=== PATIENT | male | born 1990 | race Caucasian/White ===

== ENCOUNTER → 2019-06-09 14:42 | Outpatient (BNVA) | payer OTHER, SELFPAY | PROVIDERS: Family Provider Registered Nurse; PCP Registered Nurse; Visit Provider Nurse Practitioner Family | DX: R68.89 Other general symptoms and signs (principal); J02.9 Acute pharyngitis, unspecified | CPT/HCPCS: 87081; 87880 ==

== ENCOUNTER 2019-06-23 17:10 | Emergency (ER) | payer OTHER, SELFPAY ==
[2019-06-23 17:17] VITALS: BP 146/95; PULSE 96; RESP 16; TEMP 36.1; O2SAT 97; BMI 32.5
--- NOTE | 2019-06-23 17:28 | ED_ITS ---
HPI - Male Genitourinary General: Chief complaint: Urogenital-Male Stated complaint: poss incision tear Time Seen by Provider: 06/23/19 17:28 Source: patient Mode of arrival: ambulatory Limitations: no limitations History of Present Illness: HPI Narrative: Patient comes in for concerns of wound from a mastectomy from 1 week ago. Patient states that he noticed today that the suture had come out of the right incision line and the wound has opened. Patient denies any fever, nausea vomiting, or significant pain to the area. Review of Systems General: Reports: 10 or more systems reviewed and unremarkable except in HPI and below Skin/Breast: Reports: other (surgical wound concern) PFS ED PFSH: Social History Smoking and tobacco status: never smoked Alcohol intake: current Alcohol intake frequency: holidays/special occasions only Marital status: Number of children: 3 Current occupational status: employed History of recent travel: No Physical Exam Const: COMMON NORMALS: no apparent distress and oriented x3 GENERAL APPEARANCE: cooperative HENMT: COMMON NORMALS: normocephalic, TM's normal bilaterally and external nose normal HEAD & SCALP: normal to inspection and normocephalic NOSE: external nose normal TYMPANIC MEMBRANE: TM's normal bilaterally MOUTH: oral and palatal mucosa normal THROAT: posterior oropharynx normal Eye: GENERAL EYE: normal appearance of both eyes Neck/C-Spine: COMMON NORMALS: full ROM Lymph: LYMPHATIC: no lymphadenopathy noted Chest: COMMONS NORMALS: inspection of chest normal Resp: COMMON NORMALS: normal respiratory effort EFFORT & INSPECTION: Yes able to speak in complete sentences Cardio: COMMON NORMALS: regular rate and regular rhythm RATE: regular rate RHYTHM: regular rhythm GI: COMMON NORMALS: non-tender : COMMON NORMALS: Yes no CVA tenderness BLADDER/KIDNEY EXAM: Yes no CVA tenderness Back/Pelvis: COMMON NORMALS: no CVA tenderness and thoracic and lumbar spine normal to inspection Extremity: COMMON NORMALS: normal to inspection Neuro: COMMON NORMALS: oriented x3 and moves all extremities Psych: COMMON NORMALS: mental status grossly normal and cooperative Skin: NARRATIVE SKIN EXAM: 6 mm opened incision line to the right scrotal area. Light exudate is noted to the wound without any surrounding tissue redness or swelling. No tenderness is noted on palpation. No induration of tissue is noted. Course Vital Signs: Vital signs: Vital Signs Temperature 96.9 F L 06/23/19 17:17 Pulse Rate 96 06/23/19 17:17 Respiratory Rate 16 06/23/19 17:17 Blood Pressure 146/95 06/23/19 17:17 Pulse Oximetry 97 06/23/19 17:17 MDM - Male MDM Narrative: Medical decision making narrative: Patient comes in for evaluation of surgical wound after loss of suture to the right incision. Exam notes a superficial dehiscence of the wound with some mild exudate without any signs of infection. Differential diagnosis wound infection, wound dehiscence. Examination of the wound suggest dehiscence without infection at this time. Reviewed post visit care and need for follow-up. Patient reports understanding agreed to plan. Discharge Plan Discharge Patient Disposition: Home, Self-Care Clinical Impression: Dehiscence of wound of skin Qualifiers: Encounter type: initial encounter Qualified Code(s): T81.30XA - Disruption of wound, unspecified, initial encounter Condition: Stable Prescriptions: No Action bacitracin zinc [Antibiotic (bacitracin zinc)] 500 unit/gram ointment 1 applic topical ONCE Qty: 28.4 RF: 0 bupivacaine (PF) 0.5 % (5 mg/mL) solution 50 mg intradermal ONCE Qty: 10 RF: 0 lidocaine (PF) 10 mg/mL (1 %) solution 10 ml SUBCUT ONCE Qty: 1 RF: 0 Discharge Orders: Discharge Order (Routine); Ordered 06/23/19 Ordered By: Chaitanya Andersen Referrals: Geo Singh, MANAGER TRANSITION [Primary Care Provider] - Discharge Diet: Usual diet Discharge Activity: Increase activity as tolerated Patient Instructions: Wound Dehiscence (ED) Activity Restrictions/Additional Instructions: keep wound clean and dry as much as possible clean daily with mild soap and water apply Vaseline to area follow-up with primary care in one week Return for fever worsening redness and pain Stand Alone Forms: Work/School Release Coding 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
[2019-06-23 17:55] VITALS: BP 133/76; PULSE 85; RESP 16; O2SAT 98
== END 2019-06-23 17:56 | disposition home or self-care (01) ==
PROVIDERS: Emergency Provider Nurse Practitioner Family; Family Provider Registered Nurse; PCP Registered Nurse
DX: T81.30XA Disruption of wound, unspecified, initial encounter (principal); Y83.8 Other surgical procedures as the cause of abnormal reaction of the patient, or of later complication, without mention of misadventure at the time of the procedure
CPT/HCPCS: 12345; 99282

== ENCOUNTER 2019-09-26 18:35 | Emergency (ER) | payer OTHER, SELFPAY ==
[2019-09-26 18:39] VITALS: BP 134/84; PULSE 78; RESP 14; TEMP 36.8; O2SAT 98; BMI 32.4
--- NOTE | 2019-09-26 18:47 | ED_ITS ---
HPI - Abdominal Pain General: Chief Complaint: Abdominal Pain Stated Complaint: abd pain Time Seen by Provider: 09/26/19 18:44 Source: patient Mode of arrival: ambulatory Limitations: no limitations History of Present Illness: HPI narrative: Patient comes in with right upper quadrant pain that its worsened by movement. Patient appears well. Patient appears in no acute distress. Patient does appear in pain with movement or palpation to the abdominal wall. MD elicited complaint: abdominal pain Review of Systems General: Reports: 10 or more systems reviewed and unremarkable except in HPI and below GI: Reports: abdominal pain PFSH ED PFSH: Family History Mother Hypertension Father Diabetes Hypertension Social History Smoking and tobacco status: never smoked Alcohol intake: current Alcohol intake frequency: holidays/special occasions only Marital status: Number of children: 3 Current occupational status: employed History of recent travel: No Physical Exam Const: COMMON NORMALS: no acute distress and patient oriented x3 GENERAL APPEARANCE: cooperative HENMT: COMMON NORMALS: normocephalic, TM's normal bilaterally and Normal external nose present HEAD & SCALP: normal to inspection and normocephalic NOSE: Normal external nose present TYMPANIC MEMBRANE: TM's normal bilaterally MOUTH: Normal oral and palatal mucosa present THROAT: posterior oropharynx normal Eye: GENERAL EYE: appearance normal, both eyes and all related structures Neck/C-Spine: COMMON NORMALS: full ROM Lymph: LYMPHATIC: no lymphadenopathy noted Chest: COMMONS NORMALS: normal inspection of the chest OTHER: No tenderness with palpation of the chest wall. Resp: COMMON NORMALS: normal respiratory effort EFFORT & INSPECTION: Yes able to speak in complete sentences Cardio: COMMON NORMALS: regular rate and regular rhythm RATE: regular rate RHYTHM: regular rhythm GI: AUSCULTATION: Yes normoactive bowel sounds PALPATION: Yes Tenderness to palpation present (GI) (Right upper quadrant abdominal tenderness to palpation. Abdomen is soft. Bowel sounds are active to hyperactive.) : BLADDER/KIDNEY EXAM: Yes CVA tenderness (Mild right CVA tenderness to percussion.) on the right Back/Pelvis: COMMON NORMALS: thoracic and lumbar spine normal to inspection GENERAL BACK: Yes CVA tenderness (Mild right CVA tenderness to percussion.) Extremity: COMMON NORMALS: normal to inspection Neuro: COMMON NORMALS: patient oriented x3 and moves all extremities Psych: COMMON NORMALS: mental status grossly normal and cooperative Skin: COMMON NORMALS: no rashes or lesions noted GENERAL SKIN EXAM: no rashes or lesions noted Course Vital Signs: Vital signs: Vital Signs Temperature 98.2 F 09/26/19 18:39 Pulse Rate 78 09/26/19 18:39 Respiratory Rate 14 09/26/19 18:39 Blood Pressure 134/84 09/26/19 18:39 Pulse Oximetry 98 09/26/19 18:39 MDM - Abdominal Pain MDM Narrative: Medical decision making narrative: Patient comes in today with complaints of right upper quadrant pain. Patient states the pain started this morning when he got up out of bed. Patient reports the pain is exacerbated with movement. Eating does not improve or change pain intensity. Patient appears well. Exam notes right upper quadrant abdominal tenderness. Bowel sounds are normal throughout. Vital signs are normal. Differential diagnosis includes but not limited to cholecystitis, gastroenteritis, peptic ulcer disease, colitis, constipation, appendicitis, muscle strain. Laboratory values were normal. Urinalysis was clear except for some mild bilirubin. Liver enzymes were normal and lipase was normal. Reviewed exam with patient recommended monitoring and follow-up as needed for worsening symptoms. Encourage healthy diet and plenty of fluids. And the use of Tylenol or ibuprofen for pain. Patient reported understanding and agreed to plan. Lab Data: Labs: Lab Results 09/26/19 09/26/19 09/26/19 Range/Units 19:10 20:02 20:02 WBC 6.9 (4.0-10.0) 10^3/ uL RBC 5.25 (4.1-5.3) 10^6/u L Hgb 14.8 (11.7-16.6) g/dL Hct 45.3 (42.0-52.0) % MCV 86.3 (80-94) fL MCH 28.2 (28.0-34.0) pg MCHC 32.7 (30.0-36.0) g/dL RDW 11.9 L (12.1-15.1) % Plt Count 221 (130-400) 10^3/c mm MPV 10.0 (7.4-10.4) fL Neut % (Auto) 64.7 % Lymph % (Auto) 22.9 % [place] % (Auto) 9.3 % Eos % (Auto) 2.3 % Baso % (Auto) 0.4 % Neut # (Auto) 4.45 (1.8-7.7) 10^3/u L Lymph # (Auto) 1.6 (0.8-4.8) 10^3/u L [place] # (Auto) 0.6 (0.2-0.9) 10^3/u L Eos # (Auto) 0.2 (0.0-0.8) 10^3/u L Baso # (Auto) 0.0 (0.0-0.1) 10^3/u L Nucleated RBC % (a uto) 0 % Nucleated RBCs # 0.0 /100WBC Sodium 137 (136-145) mmol/L Potassium 4.0 (3.5-5.1) mmol/L Chloride 101 (98-107) mmol/L Carbon Dioxide 28 (22-29) mmol/L Anion Gap 12.0 (5-19) BUN 19 (6-20) mg/dL Creatinine 0.8 (0.7-1.2) mg/dL GFR Calculation 114.3 (90-130) mL/min Glucose 99 (65-115) mg/dL Calculated Osmolal ity 281 L (285-295) mOsm/k g Calcium 9.3 (8.5-10.5) mg/dL Total Bilirubin 0.5 (0.15-1.2) mg/dL AST 20 (0-40) U/L ALT 23 (0-41) U/L Alkaline Phosphata se 107 (40-130) IU/L Total Protein 7.4 (6.6-8.7) g/dL Albumin 4.8 (3.5-5.2) g/dL Globulin 2.6 (1.3-4.6) g/dL Lipase 19 (13-60) U/L Urine Color Yellow (Yellow) Urine Appearance Clear (CLEAR) Urine pH 5 (5-7) Ur Specific Gravit y 1.020 (1.005-1.030) Urine Protein Neg (Negative) Urine Glucose (UA) Norm (Normal) Urine Ketones Negative (Negative) Urine Blood Neg (Negative) Urine Nitrate Negative (Negative) Urine Bilirubin 1+ H (NEGATIVE) Urine Urobilinogen 1 H (Negative) mg/dL Ur Leukocyte Coni ase Negative (Negative) Discharge Plan Discharge Patient Disposition: Home, Self-Care Clinical Impression: Abdominal pain Qualifiers: Abdominal location: right upper quadrant Qualified Code(s): R10.11 - Right upper quadrant pain Condition: Stable Prescriptions: No Action No Known Home Medications RF: 0 Discharge Orders: Discharge Order (Routine); Ordered 09/26/19 Ordered By: Chaitanya Andersen Referrals: Geo Singh FNP [Primary Care Provider] - Discharge Diet: Usual diet Discharge Activity: Increase activity as tolerated Patient Instructions: Abdominal Pain (ED) Activity Restrictions/Additional Instructions: Drink plenty of water. Use acetaminophen or ibuprofen as needed for pain. Activity as tolerated. Return to the ER for high fever or worsening symptoms. Follow-up with primary care as needed. 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
[2019-09-26 19:49] LABS: Add Urine Microscopic? NO
[2019-09-26 19:56] LABS: Bilirubin Urine 1+ (NEGATIVE); Blood Urine Neg (Negative); Glucose Urine UA Norm (Normal); Ketones Urine Negative (Negative); Leukocyte Esterase Urine Negative (Negative); Nitrate Urine Negative (Negative); Protein Urine Neg (Negative); Urine Appearance Clear (CLEAR); Urine Color Yellow (Yellow); Urobilinogen Urine 1 mg/dL (Negative); pH Urine 5 (5-7)
[2019-09-26 20:08] LABS: Basophils % 0.4 %; Eosinophils # 0.2 10^3/uL (0.0-0.8); Eosinophils % 2.3 %; Hematocrit 45.3 % (42.0-52.0); Hemoglobin 14.8 g/dL (11.7-16.6); Lymphocytes # 1.6 10^3/uL (0.8-4.8); Lymphocytes % 22.9 %; Mean Corpuscular HGB Conc 32.7 g/dL (30.0-36.0); Mean Corpuscular Hemoglobin 28.2 pg (28.0-34.0); Mean Corpuscular Volume 86.3 fL (80-94); Monocytes # 0.6 10^3/uL (0.2-0.9); Monocytes % 9.3 %; Neutrophils # 4.45 10^3/uL (1.8-7.7); Neutrophils % 64.7 %; Nucleated Red Blood Cells % 0 %; Platelet Count 221 10^3/cmm (130-400); Red Blood Count 5.25 10^6/uL (4.1-5.3); Red Cell Distribution Width 11.9 % (12.1-15.1); White Blood Count 6.9 10^3/uL (4.0-10.0)
[2019-09-26 20:23] LABS: Alanine Aminotransferase 23 U/L (0-41); Albumin Level 4.8 g/dL (3.5-5.2); Alkaline Phosphatase 107 IU/L (40-130); Aspartate Amino Transferase 20 U/L (0-40); Blood Urea Nitrogen 19 mg/dL (6-20); Calcium 9.3 mg/dL (8.5-10.5); Carbon Dioxide 28 mmol/L (22-29); Chloride 101 mmol/L (98-107); Globulin 2.6 g/dL (1.3-4.6); Glomerular Filtration Rate 114.3 mL/min (90-130); Glucose 99 mg/dL (65-115); Lipase 19 U/L (13-60); Osmolality Calculated 281 mOsm/kg (285-295); Sodium 137 mmol/L (136-145); Total Bilirubin 0.5 mg/dL (0.15-1.2); Total Protein 7.4 g/dL (6.6-8.7)
[2019-09-26 20:49] VITALS: BP 127/75; PULSE 84; RESP 18; O2SAT 97
--- NOTE | 2019-09-26 20:57 | PC.NURSE ---
i agree with this assessment
== END 2019-09-26 20:30 | disposition home or self-care (01) ==
PROVIDERS: Emergency Provider Nurse Practitioner Family; PCP Registered Nurse
DX: R10.11 Right upper quadrant pain (principal)
CPT/HCPCS: 12345; 80053; 81003; 83690; 85025; 99282

== ENCOUNTER 2020-09-01 11:00 | Outpatient (CLI) | payer OTHER, SELFPAY | END 2020-09-01 11:01 | disposition home or self-care (01) | LOC: SLEEP 09-02 13:50 | PROVIDERS: PCP Nurse Practitioner Family; Visit Provider Nurse Practitioner Family | DX: G47.30 Sleep apnea, unspecified (principal) | CPT/HCPCS: 80053; 80061; 94762 ==

== ENCOUNTER → 2020-11-10 11:55 | Outpatient (BNVA) | payer OTHER, SELFPAY | PROVIDERS: PCP Nurse Practitioner Family; Visit Provider Nurse Practitioner Family | DX: Z20.822 Contact with and (suspected) exposure to COVID-19 (principal) | CPT/HCPCS: 87635 ==

== ENCOUNTER → 2021-04-18 14:15 | Outpatient (BNVA) | payer OTHER, SELFPAY | PROVIDERS: PCP Nurse Practitioner Family; Visit Provider Nurse Practitioner Family | DX: K21.9 Gastro-esophageal reflux disease without esophagitis (principal); R04.0 Epistaxis; I10 Essential (primary) hypertension | CPT/HCPCS: 80053; 85025 ==

== ENCOUNTER 2021-06-02 20:00 | Outpatient (CLI) | payer OTHER, SELFPAY | END 2021-06-02 20:01 | disposition home or self-care (01) | LOC: SLEEP 06-03 03:20 | PROVIDERS: PCP Nurse Practitioner Family; Visit Provider Nurse Practitioner Family | DX: G47.30 Sleep apnea, unspecified (principal) | CPT/HCPCS: 95810 ==

== ENCOUNTER 2021-08-01 20:00 | Outpatient (CLI) | payer OTHER, SELFPAY | END 2021-08-01 20:01 | disposition home or self-care (01) | LOC: SLEEP 08-02 06:37 | PROVIDERS: PCP Nurse Practitioner Family; Visit Provider Nurse Practitioner Family | DX: G47.33 Obstructive sleep apnea (adult) (pediatric) (principal) | CPT/HCPCS: 95811 ==

== ENCOUNTER 2021-10-23 13:10 | Emergency (ER) | payer OTHER, SELFPAY ==
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
[2021-10-23 13:19] VITALS: BP 146/92; PULSE 109; RESP 18; TEMP 37.1; O2SAT 98; BMI 34.4
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
[2021-10-23 14:47] VITALS: BP 122/84; PULSE 94; RESP 15; O2SAT 98
== END 2021-10-23 14:50 | disposition home or self-care (01) ==
PROVIDERS: Emergency Provider Physician Assistant; PCP Nurse Practitioner Family
DX: S60.221A Contusion of right hand, initial encounter (principal); V89.2XXA Person injured in unspecified motor-vehicle accident, traffic, initial encounter
CPT/HCPCS: 73110; 73130; 99283

== ENCOUNTER → 2021-10-25 16:05 | Outpatient (BNVA) | payer OTHER, SELFPAY | PROVIDERS: PCP Nurse Practitioner Family; Visit Provider Registered Nurse Neonatal Intensive Care | DX: M79.641 Pain in right hand (principal) | CPT/HCPCS: 73130 ==

== ENCOUNTER 2022-10-10 07:40 | Emergency (ER) | payer OTHER, SELFPAY ==
[2022-10-10 07:58] VITALS: BP 129/85; PULSE 80; RESP 18; TEMP 36.6; O2SAT 96; BMI 35.9
--- NOTE | 2022-10-10 08:10 | ECG_ITS ---
[facility] Test Date: 2022-10-10 Pat Name: Christopher Lucero Department: Room: Gender: Male Technology Architect: : 1990 Requested By: August Hancock Order Number: [id number] Silas MD: Lanre Lawson M.D. Measurements Intervals [place] Rate: 80 P: 33 WA: 144 QRS: 39 QRSD: 113 T: 9 QT: 387 QTc: 448 Interpretive Statements SINUS RHYTHM POSSIBLE INFERIOR MYOCARDIAL INFARCTION , PROBABLY OLD [30 ms Q WAVE IN II/aVF] Compared to ECG 01/31/2016 12:02:09 Myocardial infarct finding now present Electronically Signed On 10-10-2022 17:33:17 CDT by Lanre Lawson M.D. [id number]
--- NOTE | 2022-10-10 08:10 | XRR_ITS ---
PROCEDURE INFORMATION: Exam: XR Chest Exam date and time: 10/10/2022 8:15 AM Age: 32 years old Clinical indication: Pain; Angina and shortness of breath; Angina pectoris; Additional info: Cp/sob TECHNIQUE: Imaging protocol: Radiologic exam of the chest. Views: 1 view. COMPARISON: CR XR chest 2V* [id number] 01/31/2016 11:54 AM FINDINGS: Lungs: Unremarkable. No consolidation. Pleural spaces: Unremarkable. No pleural effusion. No pneumothorax. Heart/Mediastinum: Unremarkable. No cardiomegaly. Bones/joints: Unremarkable. XR/XR chest 1V portable [id number] IMPRESSION: No acute findings.
--- NOTE | 2022-10-10 08:35 | XRR_ITS ---
PROCEDURE INFORMATION: Exam: XR Right Shoulder Exam date and time: 10/10/2022 9:01 AM Age: 32 years old Clinical indication: Pain; Shoulder; Right; Additional info: Right shoulder pain, throwing softball yesterday TECHNIQUE: Imaging protocol: Radiologic exam of the right shoulder. Views: 2 or more views. COMPARISON: CR XR chest 1V portable [id number] 10/10/2022 8:15 AM FINDINGS: Bones/joints: Normal. Soft tissues: Normal. XR/XR shoulder RT min 2V* [id number] IMPRESSION: No acute findings.
--- NOTE | 2022-10-10 08:36 | W.ED.CHESTPA ---
HPI - Chest Pain General: Chief Complaint: Shortness of Breath/Dyspnea Stated Complaint: RT arm inj/pain on breathing Time Seen by Provider: 10/10/22 08:01 History of Present Illness: Patient is a 32-year-old male that comes to the ED with chest pain, shortness of breath and right shoulder pain. Patient has a history of hypertension, major depressive disorder and anxiety. Patient currently takes metoprolol, losartan, Wellbutrin and fluoxetine and takes his medications daily. Last night patient was playing in his first slow pitch softball game season. He was playing outfield and he was walking into the [facility] when he started to get shortness of breath, chest pain and he described having cold sweats. He also endorsed feeling lightheaded. Chest pain was located in the left side of chest. He went and sat down on the bench but it did not help his symptoms so he went and laid down on on the grass. He did not play anymore of the game and sat and rested. Patient states he felt like he was going to pass out but never did. Most of his symptoms resolved after a softball game right before he got home. He states that he is still having some shortness of breath though all throughout last night and woke up today with feeling short of breath. Denies any active chest pain. Patient does state that he does feel some chest pain if he takes a deep breath. After the softball game last night he was having some right shoulder pain. Patient does throw with his right arm. He was having difficulty abducting right arm and having pain in right shoulder. This morning he woke up and he went to put on his shirt and he felt his right shoulder pop and is now having worsening pain in right shoulder. He is having trouble doing any abduction of his right arm. Rates his pain currently a 5 out of 10 in his right arm. Patient does endorse having panic attacks in the past. Associated symptoms: Reports dyspnea; Deny abdominal pain, fever(s), nausea, palpitations or vomiting Review of Systems Const: Denies: fever(s), chills or fatigue Eyes: Denies: change in vision or eye discomfort ENMT: Denies: throat pain, odynophagia, nasal discharge or nasal congestion Card: Reports: chest pain; Denies: palpitations, edema, swelling of feet/ankles, dyspnea on exertion or orthopnea Resp: Reports: dyspnea; Denies: productive cough or non-productive cough GI: Denies: abdominal pain, nausea, vomiting, diarrhea, constipation or hematochezia : Denies: flank pain, difficulty urinating, dysuria or hematuria Musc: Reports: extremity pain (Right shoulder); Denies: neck pain, back pain or extremity swelling Skin/Breast: Denies: rash or new lesions Neuro: Denies: headache(s), numbness in extremities or weakness in extremities PFSH ED PFSH: Medical History History of MRSA infection Surgical History History of appendectomy History of tonsillectomy and adenoidectomy Family History Mother Hypertension Cancer skin Father Diabetes Hypertension Other Chronic kidney disease (CKD) Hyperlipidemia Lung disease Psychiatric illness Denies family history of CAD (coronary artery disease) Clotting disorder Dementia Anesthesia complication Bleeding disorder Stroke Social History Smoking and tobacco status: former smoker Alcohol intake: former Year of sobriety/quit date alcohol: 21 Former alcohol use details: quit 2020 Substance/Drug Use: never Lives independently: Yes Marital status: Number of children: 3 Current occupational status: employed 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 Current gender identity: Male Special maciej needs: No Physical Exam Const: COMMON NORMALS: no acute distress, patient oriented x3, healthy appearing and alert HENMT: COMMON NORMALS: normocephalic HEAD & SCALP: normocephalic MOUTH: Normal oral and palatal mucosa present THROAT: posterior oropharynx normal and uvula midline Neck/C-Spine: COMMON NORMALS: supple GENERAL: Yes normal visual inspection Resp: COMMON NORMALS: normal respiratory effort, No retractions, No use of accessory muscles and clear to auscultation bilaterally AUSCULTATION: clear to auscultation bilaterally Cardio: COMMON NORMALS: regular rate, regular rhythm, S1 normal heart sound present, S2 normal heart sound present, No gallops present (Cardio), No clicks present (Cardio), No murmurs present (Cardio) and Peripheral pulses 2+ throughout RATE: regular rate RHYTHM: regular rhythm HEART SOUNDS: S1 normal heart sound present and S2 normal heart sound present PERIPHERAL PULSES: Peripheral pulses 2+ throughout GI: COMMON NORMALS: Normal to inspection, nondistended, normoactive bowel sounds present, Soft to palpation, non-tender and no masses PALPATION: Yes Soft to palpation : COMMON NORMALS: Yes no CVA tenderness BLADDER/KIDNEY EXAM: Yes no CVA tenderness Back/Pelvis: COMMON NORMALS: no CVA tenderness Extremity: NARRATIVE EXTREMITY EXAM: Right shoulder?tenderness over AC joint. Limited range of motion (abduction of arm). Neurovascular intact distally. GENERAL: Yes normal exam except as noted Neuro: COMMON NORMALS: patient oriented x3 SENSORIUM/ORIENTATION: Yes alert GAIT: Yes Normal gait present Skin: GENERAL SKIN EXAM: dry skin Course Vital Signs: Vital signs: Vital Signs Temperature 97.8 F 10/10/22 07:58 Pulse Rate 80 10/10/22 07:58 Respiratory Rate 15 10/10/22 08:57 Blood Pressure 129/85 10/10/22 07:58 Pulse Oximetry 95 10/10/22 08:57 Oxygen Delivery Me thod Room Air 10/10/22 07:58 MDM - Chest Pain Medical Decision Making Patient is a 32-year-old male that comes to the ED with chest pain, shortness of breath and right shoulder pain. Patient has a history of hypertension, major depressive disorder and anxiety. Patient currently takes metoprolol, losartan, Wellbutrin and fluoxetine and takes his medications daily. Last night patient was playing in his first slow pitch softball game season. He was playing outfield and he was walking into the [facility] when he started to get shortness of breath, chest pain and he described having cold sweats. He also endorsed feeling lightheaded. Chest pain was located in the left side of chest. He went and sat down on the bench but it did not help his symptoms so he went and laid down on on the grass. He did not play anymore of the game and sat and rested. Patient states he felt like he was going to pass out but never did. Most of his symptoms resolved after a softball game right before he got home. He states that he is still having some shortness of breath though all throughout last night and woke up today with feeling short of breath. Denies any active chest pain. Patient does state that he does feel some chest pain if he takes a deep breath. After the softball game last night he was having some right shoulder pain. Patient does throw with his right arm. He was having difficulty abducting right arm and having pain in right shoulder. This morning he woke up and he went to put on his shirt and he felt his right shoulder pop and is now having worsening pain in right shoulder. He is having trouble doing any abduction of his right arm. Rates his pain currently a 5 out of 10 in his right arm. Patient endorses having a history of panic attacks. Vitals are stable. Right shoulder?tenderness over AC joint. Limited range of motion (abduction of arm). Neurovascular intact distally. The rest of Exam is benign and patient appears healthy and in no acute distress or pain. CBC and CMP are unremarkable. Troponins are negative. EKG shows normal sinus rhythm with no ST segment elevation or depression seen. Chest x-ray showed no acute findings. Shoulder x-ray showed no acute findings. Patient was given a liter of IV fluids, nausea and pain meds here in the ED. He was stable for discharge home and diagnosed with atypical chest pain and right shoulder pain likely due to rotator cuff injury. I placed order with case management for patient to be referred to ortho for follow-up. Patient was put in a shoulder sling. Patient told to follow-up with his PCP within the next week for reevaluation. Return to ED precautions given. Patient understood and agreed with plan. Lab Data I reviewed the patient's lab results. 10/10/22 08:48 10/10/22 08:48 Radiology Impressions Chest X-Ray 10/10/22 08:10 IMPRESSION: No acute findings. Shoulder X-Ray 10/10/22 08:35 IMPRESSION: No acute findings. Laboratory Results WBC 8.6 10^3/uL (4.0-10.0) 10/10/22 08:48 RBC 5.02 10^6/uL (4.1-5.3) 10/10/22 08:48 Hgb 14.8 g/dL (11.7-16.6) 10/10/22 08:48 Hct 42.5 % (42.0-52.0) 10/10/22 08:48 MCV 84.7 fl (80-94) 10/10/22 08:48 MCH 29.5 pg (28.0-34.0) 10/10/22 08:48 MCHC 34.8 g/dL (30.0-36.0) 10/10/22 08:48 RDW 11.9 % (12.1-15.1) L 10/10/22 08:48 Plt Count 215 10^3/cmm (130-400) 10/10/22 08:48 MPV 9.8 fL (7.4-10.4) 10/10/22 08:48 Neut % (Auto) 78.7 % 10/10/22 08:48 Lymph % (Auto) 11.8 % 10/10/22 08:48 Lucas % (Auto) 8.7 % 10/10/22 08:48 Eos % (Auto) 0.2 % 10/10/22 08:48 Baso % (Auto) 0.3 % 10/10/22 08:48 Neut # (Auto) 6.79 10^3/uL (1.8-7.7) 10/10/22 08:48 Lymph # (Auto) 1.0 10^3/uL (0.8-4.8) 10/10/22 08:48 Lucas # (Auto) 0.8 10^3/uL (0.2-0.9) 10/10/22 08:48 Eos # (Auto) 0.0 10^3/uL (0.0-0.8) 10/10/22 08:48 Baso # (Auto) 0.0 10^3/uL (0.0-0.1) 10/10/22 08:48 Nucleated RBC % (auto) 0 % 10/10/22 08:48 Nucleated RBCs # 0.0 /100WBC 10/10/22 08:48 Sodium 138 mmol/L (136-145) 10/10/22 08:48 Potassium 3.8 mmol/L (3.5-5.1) 10/10/22 08:48 Chloride 101 mmol/L (98-107) 10/10/22 08:48 Carbon Dioxide 25 mmol/L (22-29) 10/10/22 08:48 Anion Gap 15.8 (5-19) 10/10/22 08:48 BUN 17 mg/dL (6-20) 10/10/22 08:48 Creatinine 1.0 mg/dL (0.7-1.2) 10/10/22 08:48 GFR Calculation 86.6 mL/min (90-130) L 10/10/22 08:48 Glucose 110 mg/dL (65-115) 10/10/22 08:48 Calculated Osmolality 288 mOsm/kg (285-295) 10/10/22 08:48 Calcium 8.9 mg/dL (8.5-10.5) 10/10/22 08:48 Total Bilirubin 0.9 mg/dL (0.15-1.2) 10/10/22 08:48 AST 21 U/L (0-40) 10/10/22 08:48 ALT 24 U/L (0-41) 10/10/22 08:48 Alkaline Phosphatase 123 U/L (40-130) 10/10/22 08:48 Troponin T Baseline 6 ng/L (0-15) 10/10/22 08:48 Troponin T 120 Minute 6.00 ng/L (0-15) 10/10/22 11:25 Delta Troponin T 0 ABS# (0-10) 10/10/22 11:25 Total Protein 6.9 g/dL (6.6-8.7) 10/10/22 08:48 Albumin 4.7 g/dL (3.5-5.2) 10/10/22 08:48 Globulin 2.2 g/dL (1.3-4.6) 10/10/22 08:48 EKG Data EKG 1: EKG interpretation date: 10/10/22 Interpretation: Normal sinus rhythm, no ST segment elevation or depression seen., 69 bpm Discharge Plan Discharge Patient Disposition: Home Clinical Impression: Atypical chest pain Rotator cuff injury Qualifiers: Encounter type: initial encounter Laterality: right Qualified Code(s): S46.001A - Unspecified injury of muscle(s) and tendon(s) of the rotator cuff of right shoulder, initial encounter Condition: Stable Prescriptions: New ibuprofen 800 mg tablet 800 mg PO Q8H PRN (Reason: pain) Qty: 20 0RF No Action bupropion HCl [Wellbutrin XL] 300 mg tablet extended release 24 hr 300 mg PO DAILY Qty: 90 1RF losartan 50 mg tablet 50 mg PO DAILY Qty: 90 1RF fluoxetine [Prozac] 20 mg capsule 20 mg PO DAILY Qty: 90 1RF metoprolol succinate 25 mg tablet extended release 24 hr 25 mg PO DAILY Qty: 90 1RF omeprazole 40 mg capsule,delayed release(DR/EC) 40 mg PO DAILY PRN (Reason: GERD) Qty: 90 1RF Discharge Orders: Discharge ED (Routine); Ordered 10/10/22 Ordered By: August Hancock Referrals: Joaquín Rodriguez MD [Primary Care Provider] - Discharge Diet: Regular Discharge Activity: Limit activity as instructed Patient Instructions: Shoulder Sprain (ED), Noncardiac Chest Pain (ED) Activity Restrictions/Additional Instructions: Follow-up with medical provider as directed in the next 5 to 7 days for reevaluation. Case management will be contacting you in the next several days to set up an appointment with Ortho for follow-up. Wear shoulder sling throughout the day to help with symptoms and pain. Take arm out of sling multiple times throughout the day and try to do a little range of motion exercises to prevent frozen shoulder. Continue taking all home medications as previously prescribed. Return to the ER or your medical provider if condition worsens. Please read and understand discharge instructions. Thank you for choosing [facility] for your healthcare needs today. Please realize this is an emergency room and that we are providing you with a medical screening exam and this may not be complete and all inclusive of all the testing and or work up that you may need to determine your ailment or severity of your illness. It is very important that you follow up as instructed or that you return to the Emergency Department should you have concerns or if your condition changes or worsens in any way. Stand Alone Forms: Work/School Release Coding Level of Care Code ED Radiopharmacist for Vahid Hagan
[2022-10-10 08:57] VITALS: RESP 15; O2SAT 95
[2022-10-10] MEDS: morphine 4 mg/mL SDV 1 mL IVP (08:57)
[2022-10-10] MEDS: sodium chloride 0.9% 1,000 ML 999 ML IV (08:57)
[2022-10-10 08:58] LABS: Basophils % 0.3 %; Eosinophils % 0.2 %; Hematocrit 42.5 % (42.0-52.0); Hemoglobin 14.8 g/dL (11.7-16.6); Lymphocytes % 11.8 %; Mean Corpuscular HGB Conc 34.8 g/dL (30.0-36.0); Mean Corpuscular Hemoglobin 29.5 pg (28.0-34.0); Mean Corpuscular Volume 84.7 fl (80-94); Mean Platelet Volume 9.8 fL (7.4-10.4); Monocytes # 0.8 10^3/uL (0.2-0.9); Monocytes % 8.7 %; Neutrophils # 6.79 10^3/uL (1.8-7.7); Neutrophils % 78.7 %; Nucleated Red Blood Cells % 0 %; Platelet Count 215 10^3/cmm (130-400); Red Blood Count 5.02 10^6/uL (4.1-5.3); Red Cell Distribution Width 11.9 % (12.1-15.1); White Blood Count 8.6 10^3/uL (4.0-10.0)
[2022-10-10] MEDS: ondansetron 2 mg/ML SDV 2 mL 4 MG IVP (08:58)
[2022-10-10 09:17] LABS: Alanine Aminotransferase 24 U/L (0-41); Albumin Level 4.7 g/dL (3.5-5.2); Alkaline Phosphatase 123 U/L (40-130); Anion Gap 15.8 (5-19); Aspartate Amino Transferase 21 U/L (0-40); Blood Urea Nitrogen 17 mg/dL (6-20); Calcium 8.9 mg/dL (8.5-10.5); Carbon Dioxide 25 mmol/L (22-29); Chloride 101 mmol/L (98-107); Globulin 2.2 g/dL (1.3-4.6); Glomerular Filtration Rate 86.6 mL/min (90-130); Glucose 110 mg/dL (65-115); Osmolality Calculated 288 mOsm/kg (285-295); Potassium 3.8 mmol/L (3.5-5.1); Sodium 138 mmol/L (136-145); Total Bilirubin 0.9 mg/dL (0.15-1.2); Total Protein 6.9 g/dL (6.6-8.7)
[2022-10-10 09:26] LABS: Troponin(5th) Baseline 6 ng/L (0-15)
--- NOTE | 2022-10-10 10:10 | ECG_ITS ---
[facility] Test Date: 2022-10-10 Pat Name: Christopher Lucero Department: Room: Gender: Male Creative Strategist: : 1990 Requested By: August Hancock Order Number: [id number] Silas MD: Lanre Lawson M.D. Measurements Intervals [place] Rate: 69 P: 40 TX: 170 QRS: 40 QRSD: 117 T: 11 QT: 413 QTc: 443 Interpretive Statements SINUS RHYTHM WITH SINUS ARRHYTHMIA MODERATE INTRAVENTRICULAR CONDUCTION DELAY [110+ ms QRS DURATION] Compared to ECG 10/10/2022 08:21:17 Intraventricular conduction delay now present Myocardial infarct finding no longer present Electronically Signed On 10-10-2022 17:39:40 CDT by Lanre Lawson M.D. [id number]
--- NOTE | 2022-10-10 11:32 | DCPLANNER ---
Addendum entered by Clara Malhotra 10/20/22 10:30: Patient has a follow up appointment scheduled with ortho - patient did attend appointment. Addendum entered by Clara Malhotra 10/11/22 15:21: Patient has a follow up appointment scheduled for Thursday, October 13, 2022 at 8:30 with Soren Farley at ortho. Original Note: manager collection had message to schedule a follow up appointment for patient with ortho. manager collection sent patients information to the front office staff at ortho. Patients information will be printed and reviewed. Clinic will call patient with appointment information.
[2022-10-10 12:19] LABS: Troponin 5 2HR Delta 0 ABS# (0-10)
[2022-10-10] MEDS: ketorolac 30 mg/mL INJ IVP (12:37)
== END 2022-10-10 12:55 | disposition home or self-care (01) ==
PROVIDERS: Emergency Provider Physician Assistant; PCP Family Medicine
DX: R07.89 Other chest pain (principal); S46.001A Unspecified injury of muscle(s) and tendon(s) of the rotator cuff of right shoulder, initial encounter; Z87.891 Personal history of nicotine dependence; I10 Essential (primary) hypertension; X50.9XXA Other and unspecified overexertion or strenuous movements or postures, initial encounter; Y93.64 Activity, baseball
CPT/HCPCS: 71045; 73030; 80053; 84484; 85025; 93005; 96374; 96375; 99285; J1885; J2270; J2405; J7030

== ENCOUNTER 2022-10-26 12:13 | Outpatient (CLI) | payer OTHER, SELFPAY ==
--- NOTE | 2022-10-26 12:26 | MR_ITS ---
WS: [id number] MRI RIGHT SHOULDER ARTHROGRAM HISTORY: Pain after playing softball. COMPARISON: Shoulder radiograph 10/10/2022 TECHNIQUE: Pre and postcontrast imaging. Gadolinium mixture was injected under fluoroscopy. Coronal T 1 fat sat, sagittal T2 fat sat, coronal T2 fat sat, axial proton density, axial T1 nonfat saturation. Pre arthrogram: There is a large amount of marrow edema in the humeral head with a nondisplaced humer al head fracture. There is adjacent edema in the soft tissues. Biceps tendon is in normal position. N o signal abnormality in the biceps tendon. No significant AC joint arthritis. Mild subacromial imping ement. No rotator cuff muscle atrophy or edema. The distal supraspinatus tendon is markedly thickened with a focal area of interruption. Discontinuity of the tendon with increased T2 signal at the humeral head attachment site. This is also at the same location as the fracture. Full-thickness insertion site te ar is suspected. No additional rotator cuff abnormality. Normal labrum. Post arthrogram: There is a very thin full-thickness defect in the distal supraspinatus tendon which fills with injected contrast. There is a additional full-thickness tear involving the insertion site which also fills with contrast. These tears may actually be contiguous. None of the injected contrast extends into the subacromial-subdeltoid bursa. The biceps tendon remains normal position. IMPRESSION: 1. Large amount of marrow edema with nondisplaced fracture involving the humeral head. 2. There is a complex tear with severe adjacent tendinopathy involving the distal supraspinatus tendo n. There are 2 tracts that fill with contrast consistent with tears. I suspect this is probably 1 com plex tear. No retraction of the tendon. 3. No biceps tendon tear or displacement. Distal supraspinatus tendon tear is very closely associated with the biceps tendon insertion but cannot confirm involvement on this exam.
--- NOTE | 2022-10-26 13:00 | IR_ITS ---
WS: [id number] RIGHT SHOULDER ARTHROGRAM UNDER FLUOROSCOPY. PRIOR TO MRI EVALUATION. HISTORY: pain COMPARISON: Radiographs 10/10/2022 FLUOROSCOPY TIME: 0min [id number] # of spot films: 3 Procedure, risks and complications were explained to the patient. Consent has been obtained. Under fluoroscopic guidance the skin is marked over the medial superior third of the humeral head, cl eansed with ChloraPrep and anesthetized with lidocaine. 22-gauge spinal needle is inserted to the cor shereen of the humeral head. Test injection with Omnipaque reveals the needle is appropriately positioned in the joint. A mixture of 10 cc sterile saline, 5 cc Omnipaque and 0.1 mmol gadolinium are injected under fluoroscopic guidance. Patient tolerated the joint distention well. No complications. IMPRESSION: Uncomplicated right shoulder joint injection prior to MRI.
== END 2022-10-26 12:14 | disposition home or self-care (01) ==
PROVIDERS: PCP Family Medicine; Visit Provider Nurse Practitioner Family
DX: M12.811 Other specific arthropathies, not elsewhere classified, right shoulder (principal); M75.101 Unspecified rotator cuff tear or rupture of right shoulder, not specified as traumatic; S46.009A Unspecified injury of muscle(s) and tendon(s) of the rotator cuff of unspecified shoulder, initial encounter; X58.XXXA Exposure to other specified factors, initial encounter
CPT/HCPCS: 23350; 73223; 77002; A9577; Q9966

== ENCOUNTER → 2022-11-28 13:06 | Outpatient (BNVA) | payer OTHER, SELFPAY | PROVIDERS: PCP Family Medicine; Visit Provider Nurse Practitioner Family | DX: S42.291A Other displaced fracture of upper end of right humerus, initial encounter for closed fracture; S46.811A Strain of other muscles, fascia and tendons at shoulder and upper arm level, right arm, initial encounter; Z01.818 Encounter for other preprocedural examination; X58.XXXA Exposure to other specified factors, initial encounter; Y93.64 Activity, baseball | CPT/HCPCS: 73030 ==

== ENCOUNTER 2022-12-11 14:01 | Outpatient (CLI) | payer OTHER, SELFPAY ==
[2022-12-11 14:34] LABS: Add Urine Microscopic? NO; Charge for UA Resulting for Rev
[2022-12-11 14:37] LABS: Urine Color Yellow (Yellow)
[2022-12-11 14:38] LABS: Basophils % 0.3 %; Bilirubin Urine Neg (Negative); Blood Urine Neg (Negative); Eosinophils # 0.1 10^3/uL (0.0-0.8); Eosinophils % 1.5 %; Glucose Urine UA Norm (Normal); Hematocrit 43.5 % (37-53); Ketones Urine Negative (Negative); Leukocyte Esterase Urine Negative (Negative); Lymphocytes # 1.5 10^3/uL (0.8-4.8); Lymphocytes % 22.4 %; Mean Corpuscular HGB Conc 33.8 g/dL (30-55); Mean Corpuscular Volume 85.8 fl (82-101); Mean Platelet Volume 9.5 fL (7.4-10.4); Monocytes # 0.5 10^3/uL (0.2-0.9); Neutrophils # 4.37 10^3/uL (1.8-7.7); Neutrophils % 67.2 %; Nitrate Urine Negative (Negative); Nucleated Red Blood Cells % 0 %; Platelet Count 225 10^3/cmm (157-399); Protein Urine Neg (Negative); Red Blood Count 5.07 10^6/uL (3.85-5.65); Sulfosalicylic Acid Urine Negative (Negative); Urine Appearance Clear (CLEAR); Urobilinogen Urine Norm (Negative); White Blood Count 6.51 10^3/uL (3.29-11.43); pH Urine 8 (5-7)
[2022-12-11 14:59] LABS: Alanine Aminotransferase 22 U/L (0-41); Albumin Level 4.5 g/dL (3.5-5.2); Alkaline Phosphatase 116 U/L (40-130); Aspartate Amino Transferase 17 U/L (0-40); Blood Urea Nitrogen 13 mg/dL (6-20); Carbon Dioxide 29 mmol/L (22-29); Chloride 103 mmol/L (98-107); Globulin 2.7 g/dL (1.3-4.6); Glomerular Filtration Rate 97.8 mL/min (90-130); Glucose 92 mg/dL (65-115); Osmolality Calculated 290 mOsm/kg (285-295); Sodium 140 mmol/L (136-145); Total Bilirubin 0.6 mg/dL (0.15-1.2); Total Protein 7.2 g/dL (6.6-8.7)
[2022-12-11 15:24] LABS: Anion Gap 11.9 (5-19); Potassium 3.9 mmol/L (3.5-5.1)
== END 2022-12-11 14:02 | disposition home or self-care (01) ==
PROVIDERS: PCP Family Medicine; Visit Provider Nurse Practitioner Family
DX: Z01.818 Encounter for other preprocedural examination (principal)
CPT/HCPCS: 36415; 80053; 81003; 85025

== ENCOUNTER 2022-12-27 05:50 | Day surgery (SDC) | payer OTHER, SELFPAY ==
[2022-12-26 13:04] VITALS: BMI 35.9
[2022-12-27] VITALS (8 sets, daily range): BP systolic 129–146; BP diastolic 68–102; PULSE 66–80; RESP 14–19; TEMP 36.1–36.4; O2SAT 96–100
[2022-12-27] MEDS: scopolamine 1.5 Patch 1 PATCH TRANSDERMA (06:47)
[2022-12-27] MEDS: sodium chloride 0.9% 1,000 ML 30 ML IV (06:53)
[2022-12-27] MEDS: ketorolac 30 mg/mL INJ IVP (06:54)
[2022-12-27] MEDS: acetaminophen 1,000 MG/100 ML PIGGYBACK 400 MG IV (06:55)
--- NOTE | 2022-12-27 06:58 | W.PM.OPSUD ---
Surgery/Procedure H&P Update DATE OF PROCEDURE: December 27, 2022 DATE H&P PERFORMED: 11/28/22 H&P UPDATE INFORMATION: I have reviewed H&P completed within last 30 days, I have examined patient prior to procedure and No changes to prior documentation CHANGES TO PREVIOUS DOCUMENTATION: Reviewed the ins and outs of the procedure risk benefits complication alternatives with surgery understanding risk of surgery patient elects to proceed with surgical intervention all questions been answered at this time. PREOP DIAGNOSIS: Right shoulder rotator cuff tear PRIMARY INDICATION FOR PROCEDURE: Right shoulder rotator cuff tear PLANNED PROCEDURE: Operation Date: 12/27/22 07:00 Proposed Procedures p Right shoulder diagnostic and surgical arthroscopy with rotator cuff repair and possible subacromial decompression 21364,S46.811A(Right) - Kemal Hancock DO s Rotator Cuff Repair - Arthroscopy(Right) - DO leeann Duenas possible subacromial decompression(Right) - Kemal Hancock DO
[2022-12-27] MEDS: ceFAZolin 2,000 MG in sodium chloride 0.9% (plus) 50 ML 100 MG IV (07:17)
--- NOTE | 2022-12-27 07:17 | ANES.PREANE2 ---
Pre-Anesthetic Assessment Height/Weight: Height 1.78 m Weight 113.398 kg Temp Pulse Resp BP Pulse Ox O2 Del Method 97.6 F 80 18 129/84 97 Room Air 12/27/22 06:01 12/27/22 06:01 12/27/22 06:01 12/27/22 06:01 12/27/22 06:01 12/27/22 06:01 Preop Diagnosis: Right shoulder rotator cuff tear Operation Date: 12/27/22 07:00 Proposed Procedures p Right shoulder diagnostic and surgical arthroscopy with rotator cuff repair and possible subacromial decompression 53045,S46.811A(Right) - Kemal Karissa, DO s Rotator Cuff Repair - Arthroscopy(Right) - Kemal Karissa, DO s possible subacromial decompression(Right) - Kemal [place], DO Last intake: Intake Last Liquid Date 12/26/22 Last Liquid Time 20:30 Last Solid Date 12/26/22 Last Solid Time 18:00 Social No alcohol and No tobacco Exam alert and oriented x 3 Airway Submandibular: within normal limits Cervical ROM: within normal limits Mallampati: Class II Dentition: partials History/ROS No significant history except as noted Pulmonary Sleep Apnea CV/HEM Arrythmia and Hypertension None reported Hepatic None reported GI Gastroesophageal Reflux Disease Metabolic None reported Musc/skel None reported Neuropsych Anxiety and Depression Anesthetic Plan ASA status: 3 Anesthesia: General and Regional (specify below) (Right Interscalene) Risk of > 500 ml blood loss (7ml/kg in children): No Medications/Allergies Home Medications Medication Instructions Recorded Confirmed Last Taken Type fluoxetine 20 mg capsule (Prozac) 20 mg PO DAILY #90 caps 09/01/22 12/27/22 12/26/22 Rx metoprolol succinate 25 mg 25 mg PO DAILY #90 tabs 09/01/22 12/27/22 12/27/22 Rx tablet,extended release 24 hr omeprazole 40 mg capsule,delayed 40 mg PO DAILY PRN GERD #90 caps 09/01/22 12/27/22 12/26/22 Rx release ibuprofen 800 mg tablet 800 mg PO Q8H PRN pain #20 tabs 10/10/22 12/26/22 12/18/22 Rx cyclobenzaprine 10 mg tablet 10 mg PO TID PRN muscle spasm #60 10/11/22 12/27/22 12/25/22 Rx tabs bupropion HCl 300 mg 24 hr tablet, 300 mg PO DAILY #90 tabs 11/09/22 12/27/22 12/26/22 Rx extended release (Wellbutrin XL) hydrocodone 5 mg-acetaminophen 325 1 tab PO Q6H PRN pain 5 days #20 12/27/22 Unknown Rx mg tablet tabs losartan 50 mg tablet 50 mg PO DAILY 12/27/22 12/27/22 12/24/22 History ondansetron 4 mg disintegrating 4 mg PO Q8H PRN nausea and 12/27/22 Unknown Rx tablet vomiting 3 days #9 tabs Allergies Allergy/AdvReac Type Severity Reaction Status Date / Time codeine Allergy RASH Verified 12/19/22 14:00 vancomycin Allergy RASH Verified 12/19/22 14:00 Current Medications Generic Name Dose Route Start Last Admin Trade Name Freq PRN Reason Stop Dose Admin Sodium Chloride 1,000 mls @ 30 mls/hr 12/27/22 06:00 12/27/22 06:53 Sodium Chloride 0.9% IV 12/28/22 05:59 30 mls/hr .Q24H HARJINDER Administration PFSH Anesthesia Medical History History of MRSA infection Surgical History History of appendectomy History of tonsillectomy and adenoidectomy Family History Mother Hypertension Cancer skin Father Diabetes Hypertension Other Chronic kidney disease (CKD) Hyperlipidemia Lung disease Psychiatric illness Denies family history of CAD (coronary artery disease) Clotting disorder Dementia Anesthesia complication Bleeding disorder Stroke Social History Smoking and tobacco status: former smoker Alcohol intake: former Year of sobriety/quit date alcohol: 21 Former alcohol use details: quit 2020 Substance/Drug Use: never Lives independently: Yes Marital status: Number of children: 3 Current occupational status: employed Current occupation: [employer] Current gender identity: Male Special maciej needs: No Data Anesthesia Cardiac Studies: Holter Monitor 05/23/22 Anesthesia Procedures Nerve Block Nerve Block 1: Main Anesthesia: general anesthesia Time Out Performed: Yes Consent: requested by attending/covering physician, from patient, risks and benefits reviewed and patient agrees to proceed Nerve block location: interscalene (Right) Anesthesia monitors applied: pulse oximetry, EKG, BP cuff and oxygen Nerve block position: semi sitting Anesthetic Used: ropivicaine 0.5% Amount of anesthesia used (mL): 30 Ultrasound used to: recognize landmarks and visualize and ID brachial plexus Nerve Stimulator Used?: No Interscalene/Femoral BLK: 2 stimuplex 22 g needle used for position and inplane approach Injection: neg aspiration of heme Patient Tolerated Procedure: well Complications: none
[2022-12-27] MEDS: EPINEPHrine 1 mg/mL INJ 2 MG XX (08:55)
--- NOTE | 2022-12-27 09:33 | P.BOP_ITS ---
Date of Procedure: [December 27, 2022] Surgeon: [Dr. Karissa PRITCHARD] Residential Real Estate Sales Manager(s): [August Hancock physician higher level teaching assistant] Procedure(s) performed: [Right shoulder diagnostic and surgical arthroscopy with rotator cuff repair. Subacromial decompression and labral debridement] Findings of the procedure(s): [Right shoulder rotator cuff tear, rotator cuff impingement, labral tear] Estimated blood loss: [5 ml] Specimen(s) removed: [n/a] Post-operative diagnosis: [Right shoulder rotator cuff tear, rotator cuff impingement labral tear]
--- NOTE | 2022-12-27 09:33 | P.OP_ITS ---
Operative Report Date of procedure: December 27, 2022 Surgeon: Kemal Hancock DO It Support Specialist: August Hancock PA-C, PA was necessary for assistance in this case with arm positioning and holding while rotator cuff repair occurred as well as to assist with instrumentation of rotator cuff repair and assist in wound closure Procedure: Preoperative diagnosis: Right shoulder rotator cuff tear Right shoulder subacromial impingement Post-op diagnosis:? Right?shoulder?labral tear Right?shoulder?rotator cuff tear Right?shoulder?subacromial bursitis/impingement Procedure done: Right?shoulder?diagnostic and surgical arthroscopy with arthroscopic rotator cuff repair Right?shoulder?diagnostic and surgical arthroscopy labral debridement Right?shoulder?diagnostic and surgical arthroscopy subacromial decompression (acromioplasty and bursectomy) Surgeon: Kemal Hancock DO Estimated blood loss: [5 ]mL IV fluids: See anesthesia record Implants: Arthrex 4.75 swivel lock x 2 Arthrex scorpion and suture tape Complications: None Condition: stable Disposition: same day Brief History: Patient been seen and worked up in the outpatient setting for right?shoulder?pain.? Pt had an MRI which showed findings below.? Patient's failed conservative treatment and has weakness.? We talked about treatment options far as nonoperative and operative intervention..? We talked about risk benefits complication alternatives surgical nonsurgical treatment options.? Understanding risk of surgery pt agrees to proceed with surgical intervention.? All questions have been answered at this time.? Patient elects proceed with surgery and consent obtained in office. IMPRESSION: 1. Large amount of marrow edema with nondisplaced fracture involving the humeral head. 2. There is a complex tear with severe adjacent tendinopathy involving the distal supraspinatus tendon. There are 2 tracts that fill with contrast consistent with tears. I suspect this is probably 1 complex tear. No retraction of the tendon. 3. No biceps tendon tear or displacement. Distal supraspinatus tendon tear is very closely associated with the biceps tendon insertion but cannot confirm involvement on this exam. Procedure: Patient seen evaluated in the preoperative holding area.? Consent reviewed and signed with patient.? Once again reviewed patient's MRI results as well as? planned surgical intervention.? Correct extremity marked.? Patient seen evaluated by anesthesia department received regional anesthesia.? Once ready for surgery was taken back to the operative suite.? Patient then subsequently underwent anesthesia per the anesthesia department was transported onto the OR table.? Patient was then placed into a lateral decubitus position with a beanbag and was appropriately secured to the bed.? All bony prominences well-padded.? Patient then had the right upper extremity was then prepped and draped in standard orthopedic fashion.? Patient received appropriate preoperative antibiotics.? Final timeout performed. The right upper extremity was then held in hanging from traction utilizing sterile technique.? Next started with standard diagnostic and surgical arthroscopy with posterior portal position introduced arthroscope into the glenohumeral joint.? Visualized the glenohumeral joint I then introduced a spinal needle within the rotator cuff interval to confirm appropriate anterior portal placement.? Once this was confirmed I then made my small incision and then introduced my arthroscopic shaver into the glenohumeral joint.? After thorough debridement was patient's bicep tendon was found to be intact with no tear. Next I evaluated the subscapularis tendon which was intact and no evidence of tear. ?Next there was significant labral flap tear posteriorly and not repairable and as a result used an arthroscopic shaver to carry out debridement of posterior labrum to stable labral tissue. This point time I then visualized the glenohumeral joint.? The glenohumeral joint was found to have grade 0-1? chondromalacia throughout.? Infrapatellar pouch was free of loose bodies from viewing the posterior portal.? Next a visualized the rotator cuff superiorly and there was found to be a small undersurface tearing of the supraspinatus tendon.? I utilized a spinal needle to fanta this location.? ?This completed my work within the glenohumeral joint all fluid was suctioned free of the joint.? ?Next I reintroduced the arthroscope posteriorly.? And went to the subacromial space.? I established my lateral working portal at the site of which my spinal needle was marking of the rotator cuff tear.? Thermal wand was then introduced laterally and then I subsequently performed extensive bursectomy of the subacromial space.? Patient had a small anterior bone spur. I then performed an acromioplasty to complete my subacromial decompression prior to fixing the rotator cuff tear.? Next the arthroscopic shaver was then used previous spinal needle spot that is marked the small hole in the rotator cuff this was consistent with full- thickness tear.? Given the small size this did elected for a single medial and lateral row configuration. Utilize a spinal needle to create appropriate man's angle directly over the medial footprint of the rotator cuff once this was established small incision inserted punch and subsequently set a 4.75 mm swivel lock anchor loaded with fiber tape. Subsequently took the fiber tape utilizing a grasper and scorpion passes through the rotator cuff tear and loaded this into a single lateral row anchor. At this point in time and then introduced a shaver to debride the rotator cuff footprint and decorticate the footprint in preparation for repair, next I marked by swivel lock position.? Fiber tape was then loaded into a 4.75 swivel lock I then subsequently punched and then subsequently placement 4.75 swivel lock while maintaining appropriate tension and repair of rotator cuff and this was advanced with excellent fixation. I ut ilized one of the extra sutures to perform an additional purchase of the small anterior flange of the rotator cuff tear to tack this down appropriately and then utilized standard arthroscopic knot tying technique and finalize my repair. I then had a final confirmation of appropriate repair of the supraspinatus rotator cuff tendon tear.? Sutures were then cut with an arthroscopic suture cutter and subsequently evaluated the rotator cuff repair.? Repair was found to be satisfactory?shoulder?was taken through range of motion and the repair moved as a unit with no evidence of loss of fixation. ?I then switched the arthroscope to the lateral portal to confirm this tension- free repair.? I took the?shoulder?through range of motion and the rotator cuff repair was stable and moved as a unit. ?Next I then introduced the arthroscopic shaver posteriorly to complete my subacromial decompression appropriate complaining all the way up to the lateral edge of the acromion.? This completed the surgery.? All fluid was suctioned from the?shoulder.? All instruments were removed.? The lateral incision was then closed with nylon stitches.? As well as the portal sites closed with portal nylon stitches.? Xeroform 4 x 4's ABD and tape was then applied to the right?shoulder?and was placed into a?shoulder?abduction pillow sling for rotator cuff repair.? Patient was then awakened from anesthesia and then taken back to PACU in stable condition.? Patient tolerated procedure without any issues. Disposition: Patient taken back in stable condition recovering well.? Dressings on in place clean dry and intact.? Will be nonweightbearing to the right upper extremity.? Follow rotator cuff repair protocol.? Patient to follow-up with me in the office in 2 weeks.? Patient will receive appropriate discharge instruction as well as pain medication postoperatively.? All questions answered.? We will contact the office for any questions or concerns.
--- NOTE | 2022-12-27 09:38 | PM.PACU ---
PACU note Narrative: Patient is a 32-year-old male that just underwent right shoulder diagnostic arthroscopy with rotator cuff repair. Patient transferred to PACU in stable condition. Pain is well controlled. shoulder Dressing on , dry and in place. Patient's operative arm is in a UltraSling. Patient is awake and alert and able to respond to my questions accordingly. Patient's fingers are warm with good perfusion. Normal cap refill under 2 seconds. Unable to assess further range of motion in arm due to sling. Unable to assess sensation due to residual localized anesthetic. Exam: awake Disposition: discharged
[2022-12-27] MEDS: HYDROcodone-acetaminophen 5-325 mg Tablet 1 TAB PO (10:19)
--- NOTE | 2022-12-27 15:05 | ANE.PACU2 ---
Inpatient post-anesthesia follow up: Airway intact: Yes Vital signs: Temperature 97.1 F Pulse Rate 67 Respiratory Rate 16 Blood Pressure 131/68 Pulse Oximetry 99 Oxygen Delivery Me thod Room Air Oxygen Flow Rate 6 Fraction of Inspir ed Oxygen Hydration adequate: Yes Nausea and vomiting: No Pain level: 1 Mental status: Baseline
== END 2022-12-27 10:38 | disposition home or self-care (01) ==
PROVIDERS: PCP Family Medicine; Visit Provider Student in an Organized Health Care Education/Training Program
PROC: (CPT 29805; principal; 2022-12-27 07:00)
PROC: (CPT 29827; 2022-12-27 07:00)
PROC: (CPT 23130; 2022-12-27 07:00)
DX: S43.401A Unspecified sprain of right shoulder joint, initial encounter (principal); X58.XXXA Exposure to other specified factors, initial encounter; M75.101 Unspecified rotator cuff tear or rupture of right shoulder, not specified as traumatic; M25.811 Other specified joint disorders, right shoulder; G47.30 Sleep apnea, unspecified; I10 Essential (primary) hypertension; K21.9 Gastro-esophageal reflux disease without esophagitis; Z86.14 Personal history of Methicillin resistant Staphylococcus aureus infection; Z87.891 Personal history of nicotine dependence
CPT/HCPCS: 29826; 29827; C1713; J0131; J0171; J0690; J1100; J1885; J2250; J2405; J2704; J2710; J2795; J3010; J3490; J7030

== ENCOUNTER 2023-07-17 10:43 | Outpatient (CLI) | payer OTHER, SELFPAY ==
[2023-07-17 12:38] LABS: Alanine Aminotransferase 28 U/L (0-41); Albumin Level 4.1 g/dL (3.5-5.2); Alkaline Phosphatase 122 U/L (40-130); Aspartate Amino Transferase 20 U/L (0-40); Blood Urea Nitrogen 20 mg/dL (6-20); Calcium 8.8 mg/dL (8.5-10.5); Carbon Dioxide 25 mmol/L (22-29); Chloride 104 mmol/L (98-107); Free T4 Free Thyroxine 1.24 ng/dL (0.82-1.77); Globulin 2.7 g/dL (1.3-4.6); Glomerular Filtration Rate 86.6 mL/min (90-130); Glucose 119 mg/dL (65-115); Osmolality Calculated 290 mOsm/kg (285-295); Sodium 138 mmol/L (136-145); Thyroid Stimulating Hormone 1.61 uIU/mL (0.27-4.20); Total Bilirubin 0.5 mg/dL (0.15-1.2); Total Protein 6.8 g/dL (6.6-8.7)
== END 2023-07-17 10:44 | disposition home or self-care (01) ==
PROVIDERS: PCP Family Medicine; Visit Provider Nurse Practitioner Family
DX: L74.519 Primary focal hyperhidrosis, unspecified (principal); D22.5 Melanocytic nevi of trunk; L81.4 Other melanin hyperpigmentation; L57.8 Other skin changes due to chronic exposure to nonionizing radiation
CPT/HCPCS: 36415; 80053; 84439; 84443

== ENCOUNTER → 2023-12-11 13:50 | Outpatient (BNVA) | payer SELFPAY | PROVIDERS: PCP Family Medicine; Visit Provider Student in an Organized Health Care Education/Training Program | DX: Z98.890 Other specified postprocedural states (principal); M25.511 Pain in right shoulder | CPT/HCPCS: 73030 ==

== ENCOUNTER 2024-05-24 22:39 | Emergency (ER) | payer SELFPAY ==
[2024-05-24 22:46] VITALS: BP 144/84; PULSE 99; RESP 18; TEMP 36.7; O2SAT 96; BMI 36.6
--- NOTE | 2024-05-24 23:09 | W.ED.BURNSMK ---
HPI - Burn/Smoke Inhalation General: Chief complaint: Burn/Smoke Inhalation Stated complaint: L Arm burnt while welding 2 Days ago ! Time Seen by Provider: 05/24/24 22:40 History of Present Illness: 33-year-old male patient comes in today for complaints of injury to the left forearm. Patient was welding and dropped a piece of flag on his left forearm causing a burn. Incident occurred 2 days ago. Patient was concerned due to some increasing redness surrounding the wound. Related Data Previous Rx's ?Medication ?Instructions ?Recorded omeprazole 40 mg capsule,delayed 40 mg PO DAILY PRN GERD #90 caps 03/22/23 release sildenafil 25 mg tablet (Viagra) 25 mg PO DAILY PRN sexual activity 07/02/23 #30 tabs bupropion HCl 300 mg 24 hr tablet, 300 mg PO DAILY #90 tabs 03/24/24 extended release (Wellbutrin XL) losartan 50 mg tablet 50 mg PO DAILY #90 tabs 03/24/24 metoprolol succinate 25 mg 25 mg PO DAILY #90 tabs 03/24/24 tablet,extended release 24 hr sertraline 25 mg tablet 25 mg PO DAILY #90 tabs 05/12/24 bacitracin 500 unit/gram topical 1 applic topical BID #30 grams 05/24/24 ointment cephalexin 500 mg capsule 500 mg PO BID 7 days #14 caps 05/24/24 Allergies Allergy/AdvReac Type Severity Reaction Status Date / Time codeine Allergy RASH Verified 03/24/24 12:46 vancomycin Allergy RASH Verified 03/24/24 12:46 Review of Systems General: Reports: 10 or more systems reviewed and unremarkable except in HPI and below Skin/Breast: Reports: erythema PFSH ED PFSH: Medical History History of MRSA infection Surgical History H/O repair of rotator cuff History of appendectomy History of tonsillectomy and adenoidectomy Family History Mother Hypertension Cancer skin Father Diabetes Hypertension Other Chronic kidney disease (CKD) Hyperlipidemia Lung disease Psychiatric illness Denies family history of CAD (coronary artery disease) Clotting disorder Dementia Anesthesia complication Bleeding disorder Stroke Social History Smoking and tobacco/nicotine status: former use of tobacco/nicotine Alcohol intake: former Year of sobriety/quit date alcohol: 21 Former alcohol use details: quit 2020 Substance/Drug Use: never Lives independently: Yes Marital status: Number of children: 3 Current occupational status: employed Current occupation: [employer] Current gender identity: Male Special maciej needs: No Physical Exam Const: COMMON NORMALS: alert HENMT: COMMON NORMALS: normocephalic HEAD & SCALP: normocephalic Neck/C-Spine: COMMON NORMALS: full ROM Resp: COMMON NORMALS: normal respiratory effort Cardio: COMMON NORMALS: regular rate RATE: regular rate Back/Pelvis: COMMON NORMALS: thoracic and lumbar spine normal to inspection Extremity: LEFT UPPER EXTREMITY: Yes lower arm (2 ruptured blistered areas to the left forearm.) Neuro: SENSORIUM/ORIENTATION: Yes alert Skin: NARRATIVE SKIN EXAM: Burn with ruptured blisters to the left forearm with surrounding erythema approximately 6 cm Course Vital Signs: Vital signs: Vital Signs Temperature 98.1 F 05/24/24 22:46 Pulse Rate 99 05/24/24 22:46 Respiratory Rate 18 05/24/24 22:46 Blood Pressure 144/84 05/24/24 22:46 Pulse Oximetry 96 05/24/24 22:46 Oxygen Delivery Me thod Room Air 05/24/24 22:46 MDM - Burn/Smoke Inhalation Medical Decision Making Patient comes in today for evaluation of burn x 2 days. Patient was concerned due to increasing redness and tenderness. On exam patient has some ruptured areas of blistery to the left forearm with an area of surrounding approximately 6 cm of redness. Differential diagnosis infected wound, local reaction to burn, radiation burn secondary to welding. Patient was recommended to use bacitracin ointment to the wounds until healed. Patient will be placed on cephalexin to cover for secondary infection. Tetanus was updated. Reviewed this with patient who reported understanding of care and need for follow-up. No radiology studies performed this visit Discharge Plan Discharge Patient Disposition: Home Clinical Impression: Burn of forearm, left, second degree Qualifiers: Encounter type: initial encounter Qualified Code(s): T22.212A - Burn of second degree of left forearm, initial encounter Condition: Stable Prescriptions: New cephalexin 500 mg capsule 500 mg PO BID 7 Days Qty: 14 0RF bacitracin 500 unit/gram ointment 1 applic topical BID Qty: 30 0RF No Action sildenafil [Viagra] 25 mg tablet 25 mg PO DAILY PRN (Reason: sexual activity) Qty: 30 0RF Rx Instructions: administer 30 minutes to 4 hours before activity losartan 50 mg tablet 50 mg PO DAILY Qty: 90 1RF metoprolol succinate 25 mg tablet extended release 24 hr 25 mg PO DAILY Qty: 90 1RF bupropion HCl [Wellbutrin XL] 300 mg tablet extended release 24 hr 300 mg PO DAILY Qty: 90 1RF omeprazole 40 mg capsule,delayed release(DR/EC) 40 mg PO DAILY PRN (Reason: GERD) Qty: 90 1RF sertraline 25 mg tablet 25 mg PO DAILY Qty: 90 0RF Discharge Orders: Discharge ED (Routine); Ordered 05/24/24 Ordered By: Chaitanya Andersen Referrals: Joaquín Rodriguez MD [Primary Care Provider] - Discharge Diet: Usual diet Discharge Activity: Increase activity as tolerated Patient Instructions: Superficial Burn (ED) Activity Restrictions/Additional Instructions: Clean wound with mild soap and water twice a day. Use bacitracin antibiotic ointment after cleaning to apply to the wounds until wound is healed. Take oral antibiotics as directed. Use acetaminophen and ibuprofen for pain. Follow-up with primary care for further instructions. Print Language: Bulgarian Coding Level of Care Code ED Cyber Instructor for Vahid Hagan
[2024-05-24] MEDS: bacitracin ointment Pkt 1 EACH TOPICAL (23:20)
[2024-05-24] MEDS: cephALEXin 500 mg Capsule PO (23:20)
[2024-05-24] MEDS: tetanus-dipt-pertussis 0.5 mL SDV IM (23:20)
[2024-05-24 23:21] VITALS: BP 144/84; PULSE 99; RESP 16; O2SAT 96
== END 2024-05-24 23:21 | disposition home or self-care (01) ==
PROVIDERS: Emergency Provider Nurse Practitioner Family; PCP Family Medicine
DX: T22.212A Burn of second degree of left forearm, initial encounter (principal); X58.XXXA Exposure to other specified factors, initial encounter; Z23 Encounter for immunization
CPT/HCPCS: 90471; 90715; 99283

== ENCOUNTER → 2025-02-11 13:31 | Outpatient (BNVA) | payer BC, MEDICAID, SELFPAY | PROVIDERS: PCP Family Medicine; Visit Provider Student in an Organized Health Care Education/Training Program | DX: Z98.890 Other specified postprocedural states (principal); R20.0 Anesthesia of skin; R20.2 Paresthesia of skin | CPT/HCPCS: 73030 ==